=== PATIENT | male | born 1935 | race Caucasian/White ===

== ENCOUNTER → 2017-12-22 | Outpatient (CLI) | payer OTHER ==
[~2017-12-22] MED LIST: ASPI-1005 PO; CARV6.2579 PO; CLOP75TA14 PO; ENAL2.5T PO; FINA5TAB41 PO; GLIP10TA9 PO; INSLAN SQ; METF500T6 PO; SIMV20TA6 PO; TAMS0.4C32 PO
== END | disposition home or self-care (01) ==
LOC: SHCH 11:08
PROVIDERS: ATTEND Internal Medicine Cardiovascular Disease
DX: I25.10 Atherosclerotic heart disease of native coronary artery without angina pectoris (principal)
CPT/HCPCS: 93880

== ENCOUNTER 2020-04-10 14:33 | Inpatient (IN) | payer OTHER ==
[~2020-04-10 14:33] MED LIST changes: -ENAL2.5T PO; +ENAL2.5T16 PO; +METF-444 PO; -METF500T6 PO; +SIMV-43 PO; -SIMV20TA6 PO
[2020-04-10 15:37] LABS: BASOPHILS % (AUTO) 0.8 % (0.0-5.0); EOSINOPHILS % (AUTO) 3.8 % (0.0-8.0); HEMATOCRIT 39.1 % (42-54); LYMPHOCYTES % (AUTO) 23.9 % (21.0-51.0); MEAN CORPUSCULAR HEMOGLOBIN 29.4 pg (27.0-33.0); MEAN CORPUSCULAR VOLUME 86.5 fL (79-99); MONOCYTES % (AUTO) 10.8 % (3.0-13.0); NEUTROPHILS % (AUTO) 60.4 % (40.0-77.0); PLATELET COUNT (AUTO) 223 K/uL (130-400); RED BLOOD CELL COUNT(AUTO) 4.52 MIL/uL (4.50-6.20); RED CELL DISTRIBUTION WIDTH 13.5 % (11.0-15.5); WHITE BLOOD COUNT (AUTO) 9.6 K/uL (4.8-10.8)
[2020-04-10 15:46] LABS: CREATININE 1.2 mg/dL (0.5-1.5); POTASSIUM 4.4 mmol/L (3.5-5.1)
[2020-04-10 15:51] LABS: ALBUMIN 3.9 g/dL (3.5-5.0); BILIRUBIN,TOTAL 0.5 mg/dL (0.2-1.0); TOTAL PROTEIN, SERUM 7.3 g/dL (6.0-8.3)
[2020-04-10 16:04] LABS: B-TYPE NATRIURETIC PEPTIDE 72 pg/mL (0-100)
[2020-04-10] MEDS ORDERED: MORPHINE SULFATE 2 MG/ML 1ML SYG IV PRN (21:15)
[2020-04-10] MEDS ORDERED: ACETAMINOPHEN 325 MG TAB PO PRN (21:15)
[2020-04-10] MEDS ORDERED: ONDANSETRON HCL 4 MG/2 ML VIAL IV PRN (21:15)
[2020-04-10 21:37] LABS: HEMOGLOBIN A1C 6.8 % (4.0-6.0)
[2020-04-11] MEDS ORDERED: INSULIN HUMULIN R 100 UNIT/ML 3ML SQ SCH (07:30)
[2020-04-11] MEDS ORDERED: ENOXAPARIN SODIUM 30 MG/0.3 ML SQ SCH (09:00)
[2020-04-11] MEDS ORDERED: ASPIRIN 325 MG TABLET PO SCH (09:00)
[2020-04-11] MEDS ORDERED: CARVEDILOL 3.125 MG TABLET PO SCH (09:00)
[2020-04-11] MEDS ORDERED: LOSARTAN 50 MG TABLET PO SCH (09:00)
== END 2020-04-10 22:52 | disposition left against medical advice (07) | DRG 307 ==
LOC: EDH 14:33 → EDHIP 21:01
PROVIDERS: ADMIT Internal Medicine; ATTEND Internal Medicine
DX: I34.0 Nonrheumatic mitral (valve) insufficiency (principal); E11.65 Type 2 diabetes mellitus with hyperglycemia; I10 Essential (primary) hypertension; I25.10 Atherosclerotic heart disease of native coronary artery without angina pectoris; Z82.0 Family history of epilepsy and other diseases of the nervous system; Z82.3 Family history of stroke; Z82.49 Family history of ischemic heart disease and other diseases of the circulatory system; Z82.5 Family history of asthma and other chronic lower respiratory diseases; Z83.3 Family history of diabetes mellitus; Z95.5 Presence of coronary angioplasty implant and graft; Z53.29 Procedure and treatment not carried out because of patient's decision for other reasons
CPT/HCPCS: 36415; 71045; 80053; 83036; 83880; 84484; 85025; 93005; 93306; 93356; G0378

== ENCOUNTER 2021-01-15 07:14 | Day surgery (SDC) | payer OTHER ==
[2021-01-08 13:16] LABS: BASOPHILS % (AUTO) 0.8 % (0.0-5.0); EOSINOPHILS % (AUTO) 3.5 % (0.0-8.0); LYMPHOCYTES % (AUTO) 23.8 % (21.0-51.0); MEAN CORPUSCULAR HEMOGLOBIN 29.5 pg (27.0-33.0); MEAN CORPUSCULAR HGB CONC 33.8 g/dL (32.0-36.0); MEAN CORPUSCULAR VOLUME 87.1 fL (79-99); MONOCYTES % (AUTO) 9.1 % (3.0-13.0); NEUTROPHILS % (AUTO) 62.6 % (40.0-77.0); PLATELET COUNT (AUTO) 223 K/uL (130-400); RED BLOOD CELL COUNT(AUTO) 4.48 MIL/uL (4.50-6.20); RED CELL DISTRIBUTION WIDTH 13.6 % (11.0-15.5); WHITE BLOOD COUNT (AUTO) 8.6 K/uL (4.8-10.8)
[2021-01-08 13:25] LABS: CREATININE 1.4 mg/dL (0.5-1.5); POTASSIUM 5.2 mmol/L (3.5-5.1)
[2021-01-08 13:28] LABS: INR 1.04 (0.85-1.15); PROTHROMBIN TIME 11.3 SEC (9.6-11.6)
[2021-01-08 13:30] LABS: PARTIAL THROMBOPLASTIN TIME 28.5 SEC (26.3-35.5)
[2021-01-14 14:18] VITALS: BP 127/62
[2021-01-15] VITALS (14 sets, daily range): BP systolic 103–135; BP diastolic 48–85
[~2021-01-15] VITALS: Ht 172.7 cm; Wt 74.5 kg
[~2021-01-15 07:14] MED LIST changes: +CARV12.580 PO; -CARV6.2579 PO; -ENAL2.5T16 PO; -GLIP10TA9 PO; -INSLAN SQ; +INSU3INS3 SQ; +LISI10TA24 PO; +LOVA40TA2 PO; +MVIT PO; -SIMV-43 PO
[2021-01-15] MEDS ORDERED: CEFAZOLIN SODIUM 1 GM VIAL ONE (08:00)
[2021-01-15] MEDS ORDERED: SODIUM CHLORIDE 0.9% 1000ML 1,000 ML IV ONE (08:01)
[2021-01-15] MEDS ORDERED: LIDOCAINE PF 2% 5ML ABBOJECT ONE (08:58)
[2021-01-15] MEDS ORDERED: PROPOFOL 10 MG/ML 20ML VIAL IV ONE (08:58)
[2021-01-15] MEDS ORDERED: FENTANYL CITRATE PF 50 MCG/1 ML 2ML VIAL ONE (08:58)
[2021-01-15] MEDS ORDERED: BACITRACIN 28.4 GM OINT TP ONE (08:58)
[2021-01-15] MEDS ORDERED: BUPIVACAINE/PF 0.25% 10ML VIAL IJ ONE (08:58)
[2021-01-15] MEDS ORDERED: EPHEDRINE SULFATE 50 MG/ML AMPULE ONE (09:15)
[2021-01-15] MEDS ORDERED: GLYCOPYRROLATE 1 MG/5 ML SYRINGE ONE (09:35)
== END 2021-01-15 11:10 | disposition home or self-care (01) ==
LOC: DAH 07:14
PROVIDERS: ATTEND Urology
DX: N47.1 Phimosis (principal); I10 Essential (primary) hypertension; I25.10 Atherosclerotic heart disease of native coronary artery without angina pectoris; K21.9 Gastro-esophageal reflux disease without esophagitis; Z86.73 Personal history of transient ischemic attack (TIA), and cerebral infarction without residual deficits; E11.51 Type 2 diabetes mellitus with diabetic peripheral angiopathy without gangrene; Z79.82 Long term (current) use of aspirin; Z79.4 Long term (current) use of insulin; Z79.01 Long term (current) use of anticoagulants; Z79.899 Other long term (current) drug therapy; Z20.828 Contact with and (suspected) exposure to other viral communicable diseases
CPT/HCPCS: 36415; 54161; 71045; 80048; 81003; 82948 ×2; 85025; 85610; 85730; 93005; 99283; A4215; A4221; A4222; A4223; A4600; A4606; A4663; A4930; A6260; C9803; J0690; J2001; J2704; J3010; J3490 ×3; J7030 ×2; U0003; 51702

== ENCOUNTER 2021-01-15 17:55 | Emergency (ER) | payer OTHER ==
[2021-01-15] MEDS ORDERED: ACETAMINOPHEN 325 MG TAB ONE (18:56)
[2021-01-15] MEDS ORDERED: IBUPROFEN 400 MG TABLET ONE (18:56)
[2021-01-15 18:58] LABS: APPEARANCE,URINE Clear (CLEAR); BILIRUBIN,URINE Negative (NEGATIVE); COLOR,URINE Yellow (YELLOW); GLUCOSE, URINE (UA) Negative (NEGATIVE); KETONES,URINE Trace mg/dL (NEGATIVE); LEUKOCYTE ESTERASE ,URINE Negative (NEGATIVE); NITRATE,URINE Negative (NEGATIVE); OCCULT BLOOD,URINE Negative (NEGATIVE); PROTEIN,URINE Negative (NEGATIVE); UROBILINOGEN,URINE 0.2 mg/dL (0.2-1.0)
[2021-05-18] MEDS ORDERED: INSU100C6 SQ (07:29)
[2021-05-26] MEDS ORDERED: LISI5TAB21 PO (13:54)
[2021-05-26] MEDS ORDERED: CEFU500T67 PO (13:54)
[2021-05-26] MEDS ORDERED: CARV3.12 PO (13:54)
[2021-05-26] MEDS ORDERED: APIX5TAB PO (13:54)
[2021-05-26] MEDS ORDERED: FAMO20TA8 PO (13:54)
[2021-05-26] MEDS ORDERED: FURO20TA6 PO (13:54)
== END 2021-01-15 19:09 | disposition home or self-care (01) ==
LOC: EDH 17:55
DX: R33.9 Retention of urine, unspecified (principal); E11.9 Type 2 diabetes mellitus without complications; I10 Essential (primary) hypertension; E78.00 Pure hypercholesterolemia, unspecified; Z87.891 Personal history of nicotine dependence
CPT/HCPCS: 51702; 81003

== ENCOUNTER 2021-01-21 01:58 | Emergency (ER) | payer OTHER | END 2021-01-21 04:36 | disposition home or self-care (01) | LOC: EDH 01:58 | DX: N13.8 Other obstructive and reflux uropathy (principal); R33.9 Retention of urine, unspecified; I10 Essential (primary) hypertension; E11.9 Type 2 diabetes mellitus without complications; Z88.8 Allergy status to other drugs, medicaments and biological substances; Z87.891 Personal history of nicotine dependence | CPT/HCPCS: 51702 ==